=== PATIENT | male | born 1985 | race Caucasian/White ===

== ENCOUNTER → 2022-02-19 | Day surgery (SDC) | payer BC ==
[~2022-02-19] MED LIST: ACETAMINOPHEN 1000 MG/100 ML IV ONE; ATENOLOL50 MG PO; CRESTOR10 MG PO; DEXAMETHASONE SOD PHOS INJ 4 MG/ML SDV ONE; DIOVAN160 MG PO; EPINEPHRINE 1 MG/ML 30ML VIAL ONE; FENTANYL CITRATE/PF 100MCG/2 ML INJ ONE; GLYCOPYRROLATE INJ 0.2 MG/ML VIAL ONE; KETOROLAC TROMETHAMINE 30 MG/ML VIAL ONE; LIDOCAINE HCL 2% LOCAL INJ 5 ML SDV VIAL INJ ONE; MIDAZOLAM HCL 2 MG/2 ML VIAL ONE; NEOSTIGMINE 1 MG/ML 10ML VIAL ONE; ONDANSETRON HCL INJ 2MG/ML 2ML 2 MG/ML VIAL ONE; PHENYLEPHRINE HCL 1% 10 MG/ML VIAL ONE; POVIDONE IODINE 0.05% 0.05 % ML PO ONE; PROPOFOL IV EMULSION 10 MG/ML 20 ML VIAL ONE; ROCURONIUM BROMIDE 10 MG/ML 5ML VIAL IV ONE; ROPIVACAINE 0.5% 5 MG/ML 30 ML SDV ONE; SEVOFLURANE INHAL SOLN 250 ML PEN BTL ONE; SUCCINYLCHOLINE CHLORIDE 20 MG/ML 10ML VIAL ONE; TESTOSTERO200 MG/1 M IM; TRICOR145 MG PO; ZOLOFT50 MG PO
[2022-02-19 09:47] VITALS: BP 123/65
== END | disposition home or self-care (01) ==
LOC: OR 06:03
PROVIDERS: ATTEND Specialist
DX: S43.422A Sprain of left rotator cuff capsule, initial encounter (principal); M75.52 Bursitis of left shoulder; M77.8 Other enthesopathies, not elsewhere classified; I10 Essential (primary) hypertension; K90.0 Celiac disease; E66.01 Morbid (severe) obesity due to excess calories; F32.A Depression, unspecified; X50.0XXA Overexertion from strenuous movement or load, initial encounter; Z01.810 Encounter for preprocedural cardiovascular examination; Z01.812 Encounter for preprocedural laboratory examination; Z20.822 Contact with and (suspected) exposure to COVID-19; Z79.899 Other long term (current) drug therapy; Z68.41 Body mass index [BMI] 40.0-44.9, adult
CPT/HCPCS: 0223U; 29822; 29826; 36415; 93005; J0131; J0330; J0690; J1100; J1885; J2001; J2250; J2370; J2405; J2704; J2710; J2795; J3010